=== PATIENT | female | born 1990 | race Caucasian/White ===

== ENCOUNTER 2021-09-29 10:35 | Outpatient (CLI) | payer BC, MEDICAID, SELFPAY ==
[2021-09-29 11:19] LABS: Hematocrit 34.8 % (37.0-47.0); Hemoglobin 11.4 g/dL (11.5-15.3); Mean Corpuscular HGB Conc 32.8 g/dL (30.0-36.0); Mean Corpuscular Hemoglobin 32.9 pg (28.0-34.0); Mean Corpuscular Volume 100.6 fl (81-99); Mean Platelet Volume 9.9 fL (7.4-10.4); Platelet Count 279 10^3/cmm (130-400); Red Blood Count 3.46 10^6/uL (4.1-5.3); Red Cell Distribution Width 13.5 % (12.1-15.1); White Blood Count 9.4 10^3/uL (4.0-10.0)
[2021-09-29 12:07] LABS: Estmated Average Glucose 88; Hemoglobin A1C 4.7 % (4.0-6.0)
[2021-09-29 12:30] LABS: Rapid Plasma Reagin Syphilis Nonreactive (Nonreactive)
[2021-09-29 12:40] LABS: Rubella IgG > 500.0 IU/mL (0.0-10.0)
[2021-09-29 20:50] LABS: HIV 1 & 2 Antibody Non-Reactive (Non-Reactiv); HIV 1 & 2 Antigen Non-Reactive (Non-Reactiv); Hepatitis B Surface Antigen Non-Reactive (Nonreactive); Hepatitis C Virus Antibody Reactive (Nonreactive)
[2021-10-03 23:47] LABS: HEP C RNA Viral Load Quant 123000 IU/mL (NOT DETECTED); HEP C RNA Viral Load Quant 5.09 Log IU/mL (NOT DETECTED)
== END 2021-09-29 10:36 | disposition home or self-care (01) ==
LOC: LAB 10:38
PROVIDERS: Visit Provider Obstetrics & Gynecology
DX: O09.92 Supervision of high risk pregnancy, unspecified, second trimester (principal); Z83.3 Family history of diabetes mellitus
CPT/HCPCS: 80307; 81000; 81025; 83036; 85027; 86592; 86762; 86803; 86850; 86900; 87086; 87340; 87491; 87522; 87591; 87624; 87806

== ENCOUNTER → 2021-11-08 09:03 | Outpatient (BNVA) | payer BC, MEDICAID, SELFPAY | PROVIDERS: Visit Provider Obstetrics & Gynecology | DX: Z34.92 Encounter for supervision of normal pregnancy, unspecified, second trimester (principal); Z3A.26 26 weeks gestation of pregnancy | CPT/HCPCS: 76805 ==

== ENCOUNTER → 2021-11-10 14:10 | Outpatient (BNVA) | payer BC, MEDICAID, SELFPAY | PROVIDERS: Visit Provider Obstetrics & Gynecology | DX: O98.419 Viral hepatitis complicating pregnancy, unspecified trimester (principal); B18.2 Chronic viral hepatitis C | CPT/HCPCS: 81000 ==

== ENCOUNTER → 2021-11-24 10:00 | Outpatient (BNVA) | payer BC, MEDICAID, SELFPAY | PROVIDERS: Visit Provider Obstetrics & Gynecology | DX: O26.899 Other specified pregnancy related conditions, unspecified trimester (principal); Z67.91 Unspecified blood type, Rh negative; B18.2 Chronic viral hepatitis C; Z72.0 Tobacco use; Z87.898 Personal history of other specified conditions | CPT/HCPCS: 81000; 82950; 85027; 86850 ==

== ENCOUNTER → 2021-12-11 11:02 | Outpatient (BNVA) | payer BC, MEDICAID, SELFPAY | PROVIDERS: Visit Provider Obstetrics & Gynecology | DX: O09.90 Supervision of high risk pregnancy, unspecified, unspecified trimester (principal) | CPT/HCPCS: 81000 ==

== ENCOUNTER → 2022-01-03 14:07 | Outpatient (BNVA) | payer BC, MEDICAID, SELFPAY | PROVIDERS: Visit Provider Obstetrics & Gynecology | DX: O09.92 Supervision of high risk pregnancy, unspecified, second trimester (principal); B18.2 Chronic viral hepatitis C; Z72.0 Tobacco use; Z87.898 Personal history of other specified conditions | CPT/HCPCS: 81000 ==

== ENCOUNTER → 2022-01-16 11:36 | Outpatient (BNVA) | payer BC, MEDICAID, SELFPAY | PROVIDERS: Visit Provider Obstetrics & Gynecology | DX: O09.93 Supervision of high risk pregnancy, unspecified, third trimester; Z3A.00 Weeks of gestation of pregnancy not specified | CPT/HCPCS: 80307; 81000; 87081 ==

== ENCOUNTER → 2022-01-23 10:21 | Outpatient (BNVA) | payer BC, MEDICAID, SELFPAY | PROVIDERS: Visit Provider Obstetrics & Gynecology | DX: O09.92 Supervision of high risk pregnancy, unspecified, second trimester; B18.2 Chronic viral hepatitis C; Z72.0 Tobacco use; Z87.898 Personal history of other specified conditions | CPT/HCPCS: 81000 ==

== ENCOUNTER 2022-01-30 17:30 | Inpatient (IN) | payer BC, MEDICAID, SELFPAY ==
[2022-01-30] VITALS (49 sets, daily range): BP systolic 93–186; BP diastolic 50–114; PULSE 64–103; RESP 16–18; TEMP 36.8–36.9; O2SAT 86–99; BMI 25.7
[2022-01-30 15:27] LABS: Nitrazine Paper, PH Negative
[2022-01-30 15:36] LABS: Add Urine Microscopic? NO
[2022-01-30] MEDS: lactated ringers 1,000 ML 999 ML IV ×4 (15:36→23:15)
[2022-01-30 16:49] LABS: Actim Prom Positive
--- NOTE | 2022-01-30 17:30 | PC.NURSE ---
bedside ultrasound performed and vertex presentation verified by health technical writer and Med Malodnado RN
[2022-01-30 17:38] LABS: Blood Urine Neg (Negative); Glucose Urine UA Norm (Normal); Ketones Urine Negative (Negative); Protein Urine Neg (Negative); Specific Gravity, Urine 1.005 (1.005-1.030); Urine Appearance Clear (CLEAR); Urine Color Yellow (Yellow); pH Urine 6.5 (5-7)
[2022-01-30 17:39] LABS: Add Urine Culture? No; Bacteria Urine TRACE /hpf; Bilirubin Urine Neg (Negative); Leukocyte Esterase Urine Negative (Negative); Nitrate Urine Negative (Negative); RBC Urine 0-4 /hpf (0-2); Squamous Epithelial Cell Urine 0-4 /hpf (0-5); Urobilinogen Urine Norm (Negative); WBC Urine 0-4 /hpf (0-5)
[2022-01-30] MEDS: miSOPROStol 100 mcg tablet 25 MCG VAGINAL (17:41)
[2022-01-30] MEDS: dextrose 5%-lactated ringers 1,000 ML 125 ML IV (18:52)
[2022-01-30] MEDS: ampicillin 2,000 MG in sodium chloride 0.9% (plus) 50 ML 100 MG IV (18:54)
[2022-01-30 18:59] LABS: Basophils % 0.3 %; Eosinophils # 0.1 10^3/uL (0.0-0.8); Eosinophils % 0.5 %; Hematocrit 37.4 % (37.0-47.0); Hemoglobin 12.7 g/dL (11.5-15.3); Lymphocytes # 1.7 10^3/uL (0.8-4.8); Lymphocytes % 14.7 %; Mean Corpuscular Hemoglobin 33.2 pg (28.0-34.0); Mean Corpuscular Volume 97.7 fl (81-99); Monocytes # 0.8 10^3/uL (0.2-0.9); Neutrophils # 8.75 10^3/uL (1.8-7.7); Neutrophils % 77.1 %; Nucleated Red Blood Cells % 0 %; Platelet Count 209 10^3/cmm (130-400); Red Blood Count 3.83 10^6/uL (4.1-5.3); Red Cell Distribution Width 12.7 % (12.1-15.1); White Blood Count 11.4 10^3/uL (4.0-10.0)
[2022-01-30 19:15] LABS: Amphetamines Screen Urine Negative (Negative); Barbiturates Screen Urine Negative (Negative); Benzodiazepines Screen Urine Negative (Negative); Cocaine Screen Urine Negative (Negative); Opiate Screen Urine Negative (Negative); PCP Screen Urine Negative (Negative); THC Screen Urine Negative (Negative)
--- NOTE | 2022-01-30 19:32 | PM.OPHPUD ---
Labor & Delivery H&P Update Date of Procedure: January 30, 2022 Date H&P Performed: 01/23/22 H&P update information: I have reviewed H&P completed within last 30 days, I have examined patient prior to procedure and Changes to prior documentation as noted here Changes to previous documentation: The patient presented to labor and delivery with complaints of SROM about 48 hours ago. She also reports contractions every 5-7 minutes. She was found to be positive with actin-prom. Admission Diagnosis: . iup @ 38 weeks
[2022-01-30] MEDS: ampicillin 1,000 MG in sodium chloride 0.9% (plus) 50 ML 100 MG IV (22:43)
--- NOTE | 2022-01-30 22:55 | P.ANESASSM_ITS ---
Pre-Anesthetic Assessment Height/Weight: Height 1.63 m Weight 68.039 kg Temp Pulse Resp BP Pulse Ox 98.4 F 80 18 119/66 96 01/30/22 17:09 01/30/22 23:11 01/30/22 18:13 01/30/22 23:11 01/30/22 23:07 Preop Diagnosis: IUP epidural Familial anesthetic complications: none Was Beta Charanjit taken within 24 hours: N/A Was Clonidine taken within 24 hours: N/A Last Intake: 17:30 Social Tobacco (2 cigs/day) and No alcohol Exam alert and oriented x 3 Airway Submandibular: within normal limits Cervical ROM: within normal limits Mallampati: Class II Dentition: full History/ROS No significant complaints Anesthetic Plan ASA status: 2 Anesthesia: Anesthesia Evaluation and Regional (specify below) Medications/Allergies Home Medications Medication Instructions Recorded Confirmed Last Taken Type prenat.vits,bart,gnd-nolm-nnmol 1 tab PO DAILY 09/29/21 01/23/22 Unknown History Allergies Allergy/AdvReac Type Severity Reaction Status Date / Time No Known Allergies Allergy Verified 01/23/22 10:12 Current Medications Generic Name Dose Route Start Last Admin Trade Name Freq PRN Reason Stop Dose Admin Lactated Ringer's 1,000 mls @ 999 mls/hr 01/30/22 15:11 01/30/22 16:39 Lactated Ringers IV 999 mls/hr .Q1H1M PRN Administration DISCOMFORT Dextrose/Lactated Ringer's 1,000 mls @ 125 mls/hr 01/30/22 17:15 01/30/22 19:55 Dextrose 5%-Lactated Ringers IV 0 mls/hr .Q8H LUIS FERNANDO Infusion Ampicillin Sodium 1,000 mg/ 50 mls @ 100 mls/hr 01/30/22 21:15 01/30/22 22:43 Sodium Chloride IV 100 mls/hr Q4H LUIS FERNANDO Administration Protocol Lactated Ringer's 1,000 mls @ 999 mls/hr 01/30/22 22:00 01/30/22 21:56 Lactated Ringers IV 999 mls/hr .Q1H1M PRN Administration See label comments Misoprostol 25 mcg 01/30/22 17:15 01/30/22 17:41 Misoprostol 100 Mcg Tablet VAGINAL 01/31/22 01:16 25 mcg Q4H LUIS FERNANDO Administration PFSH Anesthesia Medical History Hepatitis C History of heroin abuse History of methamphetamine abuse Family History Family/Other Diabetes maternal uncles x2 Hyperlipidemia maternal uncles x2 Hypertension maternal uncles x2 maternal aunt x1 Stroke maternal uncle Heart disease maternal uncle Grandmother Diabetes maternal Denies family history of Colon cancer Ovarian cancer Clotting disorder Breast cancer Anesthesia complication Bleeding disorder Uterine cancer Thyroid condition Female Reproductive History Date of last menstrual period: 06/07/21 : 1 Data Anesthesia : 01/30/22 18:30 Short CBC 01/30/22 Range/Units 18:30 WBC 11.4 H (4.0-10.0) 10^3/uL Hgb 12.7 (11.5-15.3) g/dL Hct 37.4 (37.0-47.0) % MCV 97.7 (81-99) fl Plt Count 209 (130-400) 10^3/cmm Neut % (Auto) 77.1 % Neut # (Auto) 8.75 H (1.8-7.7) 10^3/uL Urine 01/30/22 Range/Units 14:10 Urine Color Yellow (Yellow) Urine Appearance Clear (CLEAR) Urine pH 6.5 (5-7) Ur Specific [place] 1.005 (1.005-1.030) Urine Protein Neg (Negative) Urine Glucose (UA) Norm (Normal) Urine Ketones Negative (Negative) Urine Nitrate Negative (Negative) Urine Bilirubin Neg (Negative) Ur Leukocyte Esterase Negative (Negative) Urine RBC 0-4 H (0-2) /hpf Urine WBC 0-4 H (0-5) /hpf Cardiac Studies: No Data to Display
--- NOTE | 2022-01-30 23:13 | P.ANES_ITS ---
Anesthesia Procedures Procedure/Date: 01/30/22 Epidural: Time Out Performed: Yes Consents Signed: Procedure Consent Consent: from patient, risks and benefits reviewed and patient agrees to proceed Lumbar Level: L3-L4 Epidural position: sitting Epidural procedure: sterile prep of area, 1% lidocaine to numb the area, 18 g needle, negative for p aresthesia passed, test dose given, 1.5% xylocaine 1:200k epi, placed PCEA, no systemic response, sterile dressing applied, L.U.D. no apparent complications and 0.2% Ropiavacaine @ mls/hr (13) Additional Comments: SANDEE at 5, taped at 14 at skin. neg CSF, Neg blood return
[2022-01-31] VITALS (49 sets, daily range): BP systolic 82–153; BP diastolic 47–72; PULSE 56–82; RESP 16; TEMP 36.3–37.2; O2SAT 92–98
[2022-01-31] MEDS: ampicillin 1,000 MG in sodium chloride 0.9% (plus) 50 ML 100 MG IV (02:47)
[2022-01-31] MEDS: oxytocin 30 UNIT/500 ML BAG 600 UNIT IV (04:31)
--- NOTE | 2022-01-31 04:40 | PM.OPHPUD ---
Labor & Delivery H&P Update Date of Procedure: January 31, 2022 Date H&P Performed: 01/23/22 Admission Diagnosis: Preop diagnosis: IUP Related Problem List Diagnoses (1) Hepatitis C: (2) Tobacco use: (3) High-risk in third trimester:
--- NOTE | 2022-01-31 04:42 | P.PCNOB_ITS ---
Delivery Note: Date of delivery: January 31, 2022 Pre-delivery diagnoses: iup@37 weeks, Hepatitis C positive Post-delivery diagnoses: same-delivered Procedure: Delivering Physician: Arias Estimated blood loss (mL): 5 Findings: Term male in the JACKIE presentation. Pre-Delivery Course: The patient presented with complaints of contractions and LOF for 48 hours. Actin prom was positive. She was admitted and started on prophylactic antibiotics. She received one dose of cytotec and after a few hours, was having strong contractions and in active labor. She received an epidural for pain management. She had complete cervical dilation and began pushing. Delivery: The patient had complete cervical dilation and began to push. The head delivered in the JACKIE position over an intact perineum under intact anesthesia. The nose and mouth were bulb suctioned. The shoulders and body delivered atraumatically. The baby was placed onto the mother's abdomen. The cord was clamped and cut. Cord blood was obtained. The placenta delivered spontaneously. It was inspected and found to be intact. Inspection of the perineum revealed no repair was required. Estimated blood loss 5 mL. Apgars on baby were 8 at 1 minute and 9 at 5 minutes. Weight of baby is 7 pounds 3 ounces. Mother and baby were stable post delivery. History History History 1 Term 0 Miscarriages/Ectopic 0 0 Living Children 0 Coding Level of Care Code Acute Registered Massage Therapist for Chg Gladys
[2022-01-31] MEDS: lanolin oint 7 gm 1 APPLIC TOPICAL (08:46)
[2022-01-31] MEDS: prenatal vitamin Capsule 1 CAP PO (08:46)
[2022-01-31] MEDS: docusate sodium 100 mg Capsule PO ×2 (08:46→21:15)
[2022-01-31] MEDS: ibuprofen 800 mg tablet PO ×2 (08:46→21:15)
[2022-01-31] MEDS: benzocaine-menthol 78 gm Canister 1 SPRAY TOPICAL (08:47)
--- NOTE | 2022-01-31 14:50 | ANE.PACU2 ---
Inpatient post-anesthesia follow up: Airway intact: Yes Vital signs: Temperature 99.0 F Pulse Rate 68 Respiratory Rate 16 Blood Pressure 109/58 Pulse Oximetry 97 Oxygen Delivery Me thod Room Air Oxygen Flow Rate Fraction of Inspir ed Oxygen Hydration adequate: Yes Nausea and vomiting: No Pain level: 1 Mental status: Baseline
[2022-01-31 18:38] LABS: Hematocrit 35.6 % (37.0-47.0); Hemoglobin 12.5 g/dL (11.5-15.3); Mean Corpuscular HGB Conc 35.1 g/dL (30.0-36.0); Mean Corpuscular Hemoglobin 33.5 pg (28.0-34.0); Mean Corpuscular Volume 95.4 fl (81-99); Mean Platelet Volume 12.3 fL (7.4-10.4); Platelet Count 218 10^3/cmm (130-400); Red Blood Count 3.73 10^6/uL (4.1-5.3); Red Cell Distribution Width 12.9 % (12.1-15.1); White Blood Count 14.8 10^3/uL (4.0-10.0)
[2022-02-01] VITALS (8 sets, daily range): BP systolic 102–115; BP diastolic 59–69; PULSE 72–89; RESP 15–16; TEMP 36.7–36.8; O2SAT 92
--- NOTE | 2022-02-01 07:42 | PM.PN ---
Subjective Subjective: The patient has no concerns today Vitals/I&O/Wt Last Vital Signs Temp 97.5 F L 01/31/22 21:16 Pulse 82 02/01/22 04:35 Resp 16 02/01/22 04:40 BP 102/62 02/01/22 04:35 Pulse Ox 92 02/01/22 04:34 Weight last 48 hrs Weight 150 lb Physical Exam Narrative: The patient is doing well this morning. Const: COMMON NORMALS: no acute distress, average body habitus, patient oriented x3, no limitations, healthy appearing, alert and well nourished GENERAL APPEARANCE: cooperative, comfortable, well kempt and well developed ORIENTATION/CONSCIOUSNESS: Yes awake, Yes oriented to person, Yes oriented to place and Yes oriented to time Resp: COMMON NORMALS: normal respiratory effort EFFORT & INSPECTION: Yes able to speak in complete sentences GI: COMMON NORMALS: Soft to palpation and non-tender PALPATION: Yes Soft to palpation Extremity: COMMON NORMALS: no calf tenderness Neuro: COMMON NORMALS: patient oriented x3 SENSORIUM/ORIENTATION: Yes alert, Yes oriented to person, Yes oriented to place and Yes oriented to time Psych: APPEARANCE: Yes well kempt Urinary Catheter Management: Brink: Cath Placed During This Visit: yes, but has since been removed by the nurse Reason for Continuing Indwelling Catheter: Decision to DC Catheter Urinary Catheter Date of Insertion: 01/31/22 Urinary Catheter Time of Insertion: 23:58 Date Urinary Catheter Removed: 01/31/22 Time Urinary Catheter Discontinued: 03:59 Data : 01/31/22 16:04 Attestations Medical Necessity Statement*: The patient had a vaginal delivery. She desires to stay two nights. Coding Level of Care Code Acute Dimpling Machine Operator for Jeffrey Graham
[2022-02-01] MEDS: docusate sodium 100 mg Capsule PO (09:39)
[2022-02-01] MEDS: prenatal vitamin Capsule 1 CAP PO (09:39)
[2022-02-01] MEDS: ibuprofen 800 mg tablet PO ×3 (09:39→21:10)
[2022-02-02 04:40] VITALS: BP 117/68; PULSE 75; RESP 18; TEMP 36.8
--- NOTE | 2022-02-02 08:08 | PM.DCS ---
Discharge Providers Date of Admission: 01/30/22 17:30 Date of Discharge: February 02, 2022 Attending Provider at Admission: Dulce Bianchi MD Attending Provider at Discharge: Dulce Bianchi MD Diagnoses at Discharge Discharge Diagnosis (1) Hepatitis C: Status: Acute Qualifiers: Hepatic coma status: without hepatic coma Viral hepatitis chronicity: chronic Qualified Code(s): B18.2 - Chronic viral hepatitis C (2) Tobacco use: Status: Acute (3) High-risk in third trimester: Status: Acute Reason for Visit Reason for Visit: Contractions, poss LOF Hospital Course Hospital Course The patient was admitted with premature SROM about 48 hours prior to admission. She was admitted and received a single dose of cytotec. She began laboring from the cytotec. She received an epidural for pain management. She had spontaneous delivery of a term . She did well and was ready for discharge on day #2 Physical Exam Narrative: doing well. No concerns today. Breast feeding. normal lochia Const: COMMON NORMALS: no acute distress, average body habitus, patient oriented x3, no limitations, healthy appearing, alert and well nourished GENERAL APPEARANCE: cooperative, comfortable, well kempt and well developed ORIENTATION/CONSCIOUSNESS: Yes awake, Yes oriented to person, Yes oriented to place and Yes oriented to time Resp: COMMON NORMALS: normal respiratory effort EFFORT & INSPECTION: Yes able to speak in complete sentences GI: COMMON NORMALS: Soft to palpation and non-tender PALPATION: Yes Soft to palpation Extremity: COMMON NORMALS: no calf tenderness Neuro: COMMON NORMALS: patient oriented x3 SENSORIUM/ORIENTATION: Yes alert, Yes oriented to person, Yes oriented to place and Yes oriented to time Psych: APPEARANCE: Yes well kempt Urinary Catheter Management: Brink: Cath Placed During This Visit: yes, but has since been removed by the nurse Reason for Continuing Indwelling Catheter: Decision to DC Catheter Urinary Catheter Date of Insertion: 01/31/22 Urinary Catheter Time of Insertion: 23:58 Date Urinary Catheter Removed: 01/31/22 Time Urinary Catheter Discontinued: 03:59 Discharge Data Studies Completed and Pending Laboratory Results WBC 14.8 10^3/uL (4.0-10.0) H 01/31/22 16:04 RBC 3.73 10^6/uL (4.1-5.3) L 01/31/22 16:04 Hgb 12.5 g/dL (11.5-15.3) 01/31/22 16:04 Hct 35.6 % (37.0-47.0) L 01/31/22 16:04 MCV 95.4 fl (81-99) 01/31/22 16:04 MCH 33.5 pg (28.0-34.0) 01/31/22 16:04 MCHC 35.1 g/dL (30.0-36.0) 01/31/22 16:04 RDW 12.9 % (12.1-15.1) 01/31/22 16:04 Plt Count 218 10^3/cmm (130-400) 01/31/22 16:04 MPV 12.3 fL (7.4-10.4) H 01/31/22 16:04 Neut % (Auto) 77.1 % 01/30/22 18:30 Lymph % (Auto) 14.7 % 01/30/22 18:30 [place] % (Auto) 7.0 % 01/30/22 18:30 Eos % (Auto) 0.5 % 01/30/22 18:30 Baso % (Auto) 0.3 % 01/30/22 18:30 Neut # (Auto) 8.75 10^3/uL (1.8-7.7) H 01/30/22 18:30 Lymph # (Auto) 1.7 10^3/uL (0.8-4.8) 01/30/22 18:30 [place] # (Auto) 0.8 10^3/uL (0.2-0.9) 01/30/22 18:30 Eos # (Auto) 0.1 10^3/uL (0.0-0.8) 01/30/22 18:30 Baso # (Auto) 0.0 10^3/uL (0.0-0.1) 01/30/22 18:30 Nucleated RBC % (auto) 0 % 01/30/22 18:30 Nucleated RBCs # 0.0 /100WBC 01/30/22 18:30 Insulin-like GF I Positive 01/30/22 15:40 Urine Color Yellow (Yellow) 01/30/22 14:10 Urine Appearance Clear (CLEAR) 01/30/22 14:10 Urine pH 6.5 (5-7) 01/30/22 14:10 Ur Specific [place] 1.005 (1.005-1.030) 01/30/22 14:10 Urine Protein Neg (Negative) 01/30/22 14:10 Urine Glucose (UA) Norm (Normal) 01/30/22 14:10 Urine Ketones Negative (Negative) 01/30/22 14:10 Urine Blood Neg (Negative) 01/30/22 14:10 Urine Nitrate Negative (Negative) 01/30/22 14:10 Urine Bilirubin Neg (Negative) 01/30/22 14:10 Urine Urobilinogen Norm mg/dL (Negative) 01/30/22 14:10 Ur Leukocyte Esterase Negative (Negative) 01/30/22 14:10 Urine RBC 0-4 /hpf (0-2) H 01/30/22 14:10 Urine WBC 0-4 /hpf (0-5) H 01/30/22 14:10 Ur Squamous Epith Cells 0-4 /hpf (0-5) H 01/30/22 14:10 Amorphous Sediment Not Reportable 01/30/22 14:10 Urine Bacteria Trace /hpf (NONE) 01/30/22 14:10 Urine Opiates Screen Negative ng/mL (Negative) 01/30/22 14:10 Ur Barbiturates Screen Negative ng/mL (Negative) 01/30/22 14:10 Ur Phencyclidine Scrn Negative ng/mL (Negative) 01/30/22 14:10 Ur Amphetamines Screen Negative ng/mL (Negative) 01/30/22 14:10 U Benzodiazepines Scrn Negative ng/mL (Negative) 01/30/22 14:10 Urine Cocaine Screen Negative ng/mL (Negative) 01/30/22 14:10 U Marijuana (THC) Screen Negative ng/mL (Negative) 01/30/22 14:10 Blood Type O Negative 01/30/22 18:30 Rho(D) Type Negative 01/30/22 18:30 Antibody Screen Positive 01/30/22 18:30 Antibody Identification Anti-D 01/30/22 18:30 Screen Negative (Negative) 01/31/22 16:30 Vitals Last Vital Signs Temp 98.3 F 02/02/22 04:40 Pulse 75 02/02/22 04:40 Resp 18 02/02/22 04:40 BP 117/68 02/02/22 04:40 Pulse Ox 92 02/01/22 04:34 Discharge Plan Discharge Patient Disposition: Home Condition: Stable Prescriptions: Continued prenat.vits,bart,ipb-ygdx-vqysg Tablet 1 tab PO DAILY 0RF Discharge Orders: Discharge Order (Routine); Ordered 02/02/22 Ordered By: Dulce Bianchi Referrals: Suman Caban MD [Physician] - 03/13/22 2:00 pm (6 week post-: 03/13/22 @2:00. ) Patient Instructions: Depression (DC), Bleeding (DC), Preeclampsia and Eclampsia After Delivery (GEN), OB Discharge Report, OB Food/Drug Interaction Guide, Opioid Safety, OB Home Care, OB Proud Parent Packet, OB Vaginal Deliveries - [facility] Discharge Attestations Time Spent in Discharge Care*: less than 30 min Quality Metrics Clinical Quality Measures [ No reported AMI, CVA or VTE this stay] Coding Level of Care Code Acute Chg FW DC note Diagnoses Hepatitis C B18.2 Hepatic coma status: without hepatic coma Viral hepatitis chronicity: chronic Tobacco use Z72.0 High-risk in third trimester O09.93
[2022-02-02] MEDS: docusate sodium 100 mg Capsule PO (09:13)
[2022-02-02] MEDS: prenatal vitamin Capsule 1 CAP PO (09:13)
[2022-02-02] MEDS: ibuprofen 800 mg tablet PO (09:13)
[2022-02-02 09:22] VITALS: BP 115/75; PULSE 85; RESP 17; TEMP 36.8
[2022-02-02 10:00] VITALS: BP 115/75; PULSE 85; RESP 17; TEMP 36.8
== END 2022-02-02 10:00 | disposition home or self-care (01) | DRG 806 ==
LOC: OPOB 17:31 → OBGYN 17:31
PROVIDERS: Admitting Provider Obstetrics & Gynecology; Visit Provider Obstetrics & Gynecology
DX: O42.12 Full-term premature rupture of membranes, onset of labor more than 24 hours following rupture (principal); O98.42 Viral hepatitis complicating childbirth; Z37.0 Single live birth; B18.2 Chronic viral hepatitis C; O99.334 Smoking (tobacco) complicating childbirth; F17.210 Nicotine dependence, cigarettes, uncomplicated; Z3A.37 37 weeks gestation of pregnancy; Z87.898 Personal history of other specified conditions
CPT/HCPCS: 36415; 36430; 51702; 59025; 59409; 80306; 80503; 81001; 83986; 84112; 85025; 85027; 85460; 86850; 86870; 86900; 90384; 99211; J0290; J2795

== ENCOUNTER → 2022-07-09 15:12 | Outpatient (BNVA) | payer BC, MEDICAID, SELFPAY | PROVIDERS: Visit Provider Family Medicine | DX: B18.2 Chronic viral hepatitis C (principal); Z87.898 Personal history of other specified conditions | CPT/HCPCS: 80053; 85025; 86803; 87522; 87902 ==

== ENCOUNTER 2022-07-10 01:00 | Outpatient (CLI) | payer BC, MEDICAID, SELFPAY | END 2022-07-10 23:00 | disposition home or self-care (01) | LOC: RAD 08-21 15:14 | PROVIDERS: PCP Family Medicine; Visit Provider Family Medicine | DX: B18.2 Chronic viral hepatitis C (principal) | CPT/HCPCS: 82977; 84443; 87806 ==

== ENCOUNTER → 2022-08-16 13:25 | Outpatient (BNVA) | payer BC, MEDICAID, SELFPAY | PROVIDERS: Visit Provider Family Medicine | DX: B18.2 Chronic viral hepatitis C (principal) | CPT/HCPCS: 85610; 87522 ==

== ENCOUNTER 2022-09-12 10:24 | Outpatient (CLI) | payer BC, MEDICAID, SELFPAY ==
--- NOTE | 2022-09-12 10:15 | US_ITS ---
WS: [id number] Complete ABDOMINAL ULTRASOUND HISTORY: B18.2 - Chronic viral hepatitis C COMPARISON: None available. Liver: 15.4 cm in length. Liver is normal size and echogenicity with no mass or intrahepatic dilatati on. Portal Vein: Normal hepatopetal flow with monophasic waveform. Gallbladder: Normally distended with no gallstones, wall thickening or pericholecystic fluid. Pancreas: Normal size and echogenicity. CBD: 0.2 cm. Right kidney: 9.1 cm x 5.1 cm x 3.9 cm. No mass, cortical thickening or hydronephrosis. Left kidney: 10.2 cm x 5.0 cm x 4.9 cm. No mass, cortical thickening or hydronephrosis. Spleen: Normal size and echogenicity. Abdominal aorta and IVC are within normal limits. No ascites. US/US abdomen complete* [id number] IMPRESSION: Normal complete abdomen ultrasound.
== END 2022-09-12 10:25 | disposition home or self-care (01) ==
PROVIDERS: PCP Family Medicine; Visit Provider Family Medicine
DX: B18.2 Chronic viral hepatitis C (principal)
CPT/HCPCS: 76700

== ENCOUNTER → 2022-10-30 11:06 | Outpatient (BNVA) | payer BC, MEDICAID, SELFPAY | PROVIDERS: PCP Family Medicine; Visit Provider Family Medicine | DX: B19.20 Unspecified viral hepatitis C without hepatic coma (principal) | CPT/HCPCS: 80053; 85025; 87522 ==

== ENCOUNTER → 2023-08-06 14:00 | Outpatient (BNVA) | payer BC, MEDICAID, SELFPAY | PROVIDERS: PCP Family Medicine; Referring Provider Nurse Practitioner Family; Visit Provider Obstetrics & Gynecology | DX: Z34.90 Encounter for supervision of normal pregnancy, unspecified, unspecified trimester (principal) | CPT/HCPCS: 81000; 87081 ==

== ENCOUNTER → 2023-08-14 15:17 | Outpatient (BNVA) | payer BC, MEDICAID, SELFPAY | PROVIDERS: PCP Family Medicine; Visit Provider Obstetrics & Gynecology | DX: Z34.90 Encounter for supervision of normal pregnancy, unspecified, unspecified trimester (principal) | CPT/HCPCS: 81000 ==

== ENCOUNTER 2023-08-18 20:45 | Outpatient (CLI) | payer BC, MEDICAID, SELFPAY ==
[2023-08-18 21:00] VITALS: BMI 27.1
--- NOTE | 2023-08-18 22:41 | USR_ITS ---
PROCEDURE INFORMATION: Exam: US , Limited Exam date and time: 08/18/2023 11:34 PM Age: 33 years old Clinical indication: Lmp or gestational age (in weeks): 39 w; Other: Patient thought she was leaking fluid. Strip test negative. ; Additional info: Measure alisson LABS AND CLINICAL REPORTS: Last menstrual period start date: 11/17/2022 Gestational age (Established): 39 w 1 d Estimated due date (Established): 08/24/2023 TECHNIQUE: Imaging protocol: Real-time ultrasound of the maternal uterus with image documentation. Exam focused on the clinical indication. COMPARISON: US OB >= 14 weeks fetus [id number] 11/08/2021 9:04 AM FINDINGS: Gestation: Single live intrauterine fetus. measurements not obtained. heart rate: 144 bpm presentation: Vertex presentation. Placenta: Unremarkable visualized grade III posterior fundal placenta. Amniotic fluid index: ALISSON is 10.08 cm. MATERNAL: Cervix: Cervical length measures 3.9 cm. US/US OB limited [id number] IMPRESSION: 1. Single live intrauterine fetus in vertex presentation with reported LMP gestational age 39 weeks 1 day and estimated due date 08/24/2023. 2. ALISSON 10.08 cm. 3. Closed cervix measuring 3.9 cm in length.
[2023-08-18 23:26] LABS: Actim Prom Negative
[2023-08-19 00:27] VITALS: BP 111/62; PULSE 81
[2023-08-19 06:18] LABS: Nitrazine Paper, PH Negative
== END 2023-08-19 00:30 | disposition home or self-care (01) ==
LOC: OPOB 21:02 → OBGYN 21:03
PROVIDERS: PCP Family Medicine; Visit Provider Obstetrics & Gynecology
DX: O26.893 Other specified pregnancy related conditions, third trimester (principal); Z3A.39 39 weeks gestation of pregnancy; N89.8 Other specified noninflammatory disorders of vagina
CPT/HCPCS: 59025; 76815; 83986; 84112; 99211

== ENCOUNTER → 2023-08-21 15:37 | Outpatient (BNVA) | payer BC, MEDICAID, SELFPAY | PROVIDERS: PCP Family Medicine; Visit Provider Obstetrics & Gynecology | DX: Z34.80 Encounter for supervision of other normal pregnancy, unspecified trimester (principal) | CPT/HCPCS: 81000 ==

== ENCOUNTER 2023-08-22 07:06 | Inpatient (IN) | payer BC, MEDICAID, SELFPAY ==
[2023-08-22] VITALS (51 sets, daily range): BP systolic 87–123; BP diastolic 52–78; PULSE 62–92; RESP 16–17; TEMP 35.9–36.6; BMI 26.2
[2023-08-22 08:21] LABS: Basophils % 0.2 %; Eosinophils # 0.1 10^3/uL (0.0-0.8); Eosinophils % 0.6 %; Hematocrit 33.2 % (36-47); Lymphocytes # 1.9 10^3/uL (0.8-4.8); Lymphocytes % 23.1 %; Mean Corpuscular HGB Conc 33.4 g/dL (30-55); Mean Corpuscular Hemoglobin 31.7 pg (27-33); Mean Corpuscular Volume 94.9 fl (85-98); Mean Platelet Volume 11.7 fL (7.4-10.4); Monocytes # 0.6 10^3/uL (0.2-0.9); Monocytes % 7.9 %; Neutrophils # 5.46 10^3/uL (1.8-7.7); Neutrophils % 67.7 %; Nucleated Red Blood Cells % 0 %; Platelet Count 216 10^3/cmm (157-399); Red Cell Distribution Width 13.8 % (12.1-15.1); White Blood Count 8.08 10^3/uL (3.29-11.43)
[2023-08-22] MEDS: oxytocin 30 UNIT/500 ML BAG IV (08:30)
[2023-08-22] MEDS: dextrose 5%-lactated ringers 1,000 ML 125 ML IV ×3 (08:32→23:15)
[2023-08-22 08:44] LABS: Amphetamines Screen Urine Negative (Negative); Barbiturates Screen Urine Negative (Negative); Benzodiazepines Screen Urine Negative (Negative); Cocaine Screen Urine Negative (Negative); Opiate Screen Urine Negative (Negative); PCP Screen Urine Negative (Negative); THC Screen Urine Negative (Negative)
--- NOTE | 2023-08-22 09:25 | P.HP_ITS ---
Providers/Chief Complaint 2 Admitting Physician: Walt Turner MD Primary MARKETING PROGRAMS SPECIALIST: Walt Turner MD Primary Care Provider: Elle Coleman MD Chief Complaint: Induction of labor HPI MARKETING PROGRAMS SPECIALIST History of Present Illness 33 y.o. EDC August 24, 2023 by 10-week sono At 39 w 5 d no complications now admitted for elective induction of labor No c/o + active movements h/o x one POBHx: 01-31-22, , male, 37 weeks, uncomplicated Present Details : 2 Para: 1 Labs Rubella: Immune RPR: Negative GBS: Negative Medications/Allergies Home Medications Medication Instructions Recorded Confirmed Last Taken Type prenat.vits,bart,rwq-shux-iyvap 1 tab PO DAILY 09/29/21 08/22/23 08/21/23 History Allergies Allergy/AdvReac Type Severity Reaction Status Date / Time No Known Allergies Allergy Verified 08/21/23 15:16 PFSH MARKETING PROGRAMS SPECIALIST 2 PFSH: Medical History History of methamphetamine abuse History of heroin abuse Hepatitis C Surgical History No history of previous surgery History of wisdom tooth extraction Family History Family/Other Diabetes maternal uncles x2 Hyperlipidemia maternal uncles x2 Hypertension maternal uncles x2 maternal aunt x1 Stroke maternal uncle Heart disease maternal uncle Grandmother Diabetes maternal Denies family history of Colon cancer Ovarian cancer Clotting disorder Breast cancer Anesthesia complication Bleeding disorder Uterine cancer Thyroid disease Social History Substance/Drug Use: former Date of last use: clean 6 years from meth and heroin Personal Safety: Do you feel safe at home: Yes History History History 2 2 Term 1 0 Miscarriages/Ectopic 0 Living Children 1 Care YARIEL Calculator 2 Estimated Delivery Date Method Current WG Current Estimate 08/24/23 Ultrasound #1 39w 6d Other Estimates 08/24/23 LMP (Uncertain) 39w 6d Vitals/I&O/Wt Last Vital Signs Temp 97.3 F L 08/23/23 03:17 Pulse 68 02/02/24 04:00 Resp 16 08/22/23 10:00 BP 109/66 08/23/23 04:00 O2 Del Method Room Air 08/22/23 08:00 08/22/23 08/22/23 08/23/23 14:59 22:59 06:59 Intake Total 21.417 / 21.417 1042.75 / 1064.167 823.334 / 1887.501 Balance 21.417 / 21.417 1042.75 / 1064.167 823.334 / 1887.501 Weight last 48 hrs Weight 153 lb Physical Exam 2 Narrative: Weight 179 lbs; 5?4? VS normal Comfortable, awake, alert Lungs: clear Cor: RRR Abd: nontender FH 37 cm, cephalic FHTs normal Cervix: 1 cm / 75% / -2 / posterior Ext: no edema External monitor: heart tracing good variability, + accelerations Data 08/22/23 07:50 Results Labs OB ([facility]): 2 Obstetrics 08/18/23 Blood Type O Negative 08/22/23 Antibody Screen Positive 08/22/23 Hct 33.2 % (36-47) L 08/22/23 Hgb 11.10 g/dL (11.27-16.99) L 08/22/23 Rho(D) Type Negative 08/22/23 Plt Count 216 10^3/cmm (157-399) 08/22/23 Hep Bs Antigen Non-reactive (Nonreactive) 09/29/21 Hepatitis C Antibody Reactive (Nonreactive) H 07/09/22 Rubella IgG Antibody > 500.0 IU/mL (0.0-10.0) H 09/29/21 RPR Nonreactive (Nonreactive) 09/29/21 HIV 1&2 Ab & HIV 1 Ag Non-reactive (Non-Reactiv) 07/10/22 TSH 0.78 uIU/mL (0.27-4.20) 07/10/22 Gest Glucose Tolerance 125 mg/dL 11/24/21 Hemoglobin A1c 4.7 % (4.0-6.0) 09/29/21 HCG, Qual Positive (Negative) H 09/29/21 Urine Opiates Screen Negative ng/mL (Negative) 08/22/23 Ur Barbiturates Screen Negative ng/mL (Negative) 08/22/23 Ur Phencyclidine Scrn Negative ng/mL (Negative) 08/22/23 Ur Amphetamines Screen Negative ng/mL (Negative) 08/22/23 U Benzodiazepines Scrn Negative ng/mL (Negative) 08/22/23 Urine Cocaine Screen Negative ng/mL (Negative) 08/22/23 U Marijuana (THC) Screen Negative ng/mL (Negative) 08/22/23 Micro Urine Specimen 09/29/21 Pap Smear Interpret See note 09/29/21 A&P Assessment and plan (1) Supervision of other normal : 39 w 5 d (2) Encounter for induction of labor: Patient requests induction of labor Admitted for labor induction Plan start Pitocin per protocol Attestations 2 Medical Necessity Statement*: patient at 39 w 5 d; admitted for induction of labor Coding Level of Care Code Acute Code for Chg Fwd Diagnoses Supervision of other normal Z34.80 Encounter for induction of labor Z34.90 Time Spent (min) 30
--- NOTE | 2023-08-22 22:45 | P.PN_ITS ---
ENVIRONMENTAL SCIENCE TECHNICIAN Subjective 2 Subjective: Interval history: Fetus reassuring Having mild UCs Cx: 2 cm / 75% / -2 / posterior AROM, clear fluid Labor: Station: -2 Amniotic Membrane Status: Ruptured Monitor Mode: External Contraction Pattern: Irregular Status: Category II Vitals/I&O/Wt Last Vital Signs Temp 97.3 F L 08/23/23 03:17 Pulse 68 08/23/23 04:00 Resp 16 08/22/23 10:00 BP 109/66 08/23/23 04:00 O2 Del Method Room Air 08/22/23 08:00 08/22/23 08/22/23 08/23/23 14:59 22:59 06:59 Intake Total 21.417 / 21.417 1042.75 / 1064.167 823.334 / 1887.501 Balance 21.417 / 21.417 1042.75 / 1064.167 823.334 / 1887.501 Weight last 48 hrs Weight 153 lb Data 08/22/23 07:50 A&P Assessment and plan (1) Supervision of other normal : (2) Encounter for induction of labor: (3) Rh negative status during : Attestations 2 Medical Necessity Statement*: patient at 39 w 5 d; admitted for induction of labor Coding Level of Care Code Acute Code for Chg Fwd Diagnoses Supervision of other normal Z34.80 Encounter for induction of labor Z34.90 Rh negative status during O26.899; Z67.91 Time Spent (min) 30
[2023-08-23] VITALS (22 sets, daily range): BP systolic 105–132; BP diastolic 54–83; PULSE 61–95; RESP 16–18; TEMP 36.1–36.9; O2SAT 96–100
[2023-08-23] MEDS: lactated ringers 1,000 ML 999 ML IV (01:28)
--- NOTE | 2023-08-23 02:35 | P.PN_ITS ---
SALES ATTENDANT BUILDING MATERIALS Subjective 2 Subjective: Interval history: DELIVERY NOTE , vigorous female infant Cord gases and blood obtained Normal placenta and cord Second-degree perineal laceration repaired EBL: 300 cc No complications Labor: Station: -2 Amniotic Membrane Status: Ruptured Monitor Mode: External Contraction Pattern: Irregular Status: Category II Vitals/I&O/Wt Last Vital Signs Temp 97.3 F L 08/23/23 03:17 Pulse 68 08/23/23 04:00 Resp 16 08/22/23 10:00 BP 109/66 08/23/23 04:00 O2 Del Method Room Air 08/22/23 08:00 08/22/23 08/22/23 08/23/23 14:59 22:59 06:59 Intake Total 21.417 / 21.417 1042.75 / 1064.167 823.334 / 1887.501 Balance 21.417 / 21.417 1042.75 / 1064.167 823.334 / 1887.501 Weight last 48 hrs Weight 153 lb Data 08/22/23 07:50 A&P Assessment and plan (1) Vaginal delivery: (2) Second degree perineal laceration: Attestations 2 Medical Necessity Statement*: patient s/p vaginal delivery Coding Level of Care Code Acute Code for Chg Fwd Diagnoses Vaginal delivery O80 Second degree perineal laceration O70.1 Time Spent (min) 60
[2023-08-23] MEDS: lidocaine 2% INJ 20 mL INJECTION (02:38)
[2023-08-23] MEDS: oxytocin 30 UNIT/500 ML BAG 600 UNIT IV (02:39)
--- NOTE | 2023-08-23 02:40 | PM.DELIVERY ---
Delivery Note: Date of delivery: August 23, 2023 Pre-delivery diagnoses: 39 w 5 d induction of labor Post-delivery diagnoses: 39 w 5 d induction of labor vaginal delivery repair of second-degree perineal laceration Procedure: induction of labor vaginal delivery repair of second-degree perineal laceration Op report anesthesia: None Delivering Physician: Walt Turner MD Estimated blood loss (mL): 300 Findings: , vigorous female Cord gases and blood obtained Normal placenta and cord Second-degree perineal laceration repaired EBL: 300 cc No complications Pre-Delivery Course: normal labor course Delivery: vaginal Post-Delivery Status: good History History History 2 Term 1 0 Miscarriages/Ectopic 0 Living Children 1 A&P Assessment and plan (1) Vaginal delivery: (2) Second degree perineal laceration: Coding Level of Care Code Acute Code for Chg Fwd Diagnoses Vaginal delivery O80 Second degree perineal laceration O70.1 Time Spent (min) 60
[2023-08-23] MEDS: acetaminophen 325 mg Tablet 650 MG PO (04:06)
[2023-08-23] MEDS: benzocaine-menthol 78 gm Canister 1 SPRAY TOPICAL (04:41)
[2023-08-23] MEDS: ibuprofen 800 mg tablet PO ×3 (11:21→20:21)
[2023-08-23] MEDS: docusate sodium 100 mg Capsule PO ×2 (11:22→17:38)
[2023-08-23] MEDS: prenatal vitamin Capsule 1 CAP PO (11:22)
[2023-08-23 21:11] LABS: Mean Corpuscular HGB Conc 32.7 g/dL (30-55); Mean Corpuscular Volume 94.9 fl (85-98); Mean Platelet Volume 11.7 fL (7.4-10.4); Platelet Count 196 10^3/cmm (157-399); Red Blood Count 3.16 10^6/uL (3.85-5.65); Red Cell Distribution Width 13.8 % (12.1-15.1); White Blood Count 8.69 10^3/uL (3.29-11.43)
[2023-08-24 04:16] VITALS: BP 113/58; PULSE 59; RESP 16; TEMP 36.8
[2023-08-24] MEDS: ibuprofen 800 mg tablet PO (09:26)
[2023-08-24] MEDS: ferrous sulfate EC 325 mg Tablet PO (09:26)
[2023-08-24] MEDS: prenatal vitamin Capsule 1 CAP PO (09:26)
[2023-08-24] MEDS: docusate sodium 100 mg Capsule PO (09:26)
[2023-08-24 09:29] VITALS: BP 108/55; PULSE 80; O2SAT 98
--- NOTE | 2023-08-24 10:45 | PM.OBGYDC ---
Discharge Providers TRACK LAYING EQUIPMENT OPERATOR Date of Admission: 08/22/23 07:06 Date of Discharge: 08/24/23 Attending Provider at Admission: Walt Turner MD Attending Provider at Discharge: Walt Turner MD Consults: none Primary TRACK LAYING EQUIPMENT OPERATOR: Walt Turner MD Primary Care Provider: Elle Coleman MD Diagnoses at Discharge Discharge Diagnosis (1) Vaginal delivery: Details from hospital stay: patient was admitted at 39 w 5 d for induction of labor had normal labor progress had vaginal delivery with repair of second-degree perineal laceration did well without any complications patient was discharged to home on first day Status: Inactive (2) Second degree perineal laceration: Status: Inactive Reason for Visit Reason for Visit: Induction of labor Hospital Course Hospital Course patient was admitted at 39 w 5 d for induction of labor had normal labor progress had vaginal delivery with repair of second-degree perineal laceration did well without any complications patient was discharged to home on first day Information Peripartum Data: Infant Delivery Method: Vaginal Laceration description: Perineal - 2nd Degree Episiotomy description: None complications: none Physical Exam Narrative: afebrile, VS normal comfortable, awake, alert Abd: soft, nontender. fundus firm Ext: no edema; nontender History History History 2 Term 1 0 Miscarriages/Ectopic 0 Living Children 1 Discharge Data Studies Completed and Pending Laboratory Results WBC 8.69 10^3/uL (3.29-11.43) 08/23/23 20:36 RBC 3.16 10^6/uL (3.85-5.65) L 08/23/23 20:36 Hgb 9.80 g/dL (11.27-16.99) L 08/23/23 20:36 Hct 30.0 % (36-47) L 08/23/23 20:36 MCV 94.9 fl (85-98) 08/23/23 20:36 MCH 31.0 pg (27-33) 08/23/23 20:36 MCHC 32.7 g/dL (30-55) 08/23/23 20:36 RDW 13.8 % (12.1-15.1) 08/23/23 20:36 Plt Count 196 10^3/cmm (157-399) 08/23/23 20:36 MPV 11.7 fL (7.4-10.4) H 08/23/23 20:36 Neut % (Auto) 67.7 % 08/22/23 07:50 Lymph % (Auto) 23.1 % 08/22/23 07:50 [place] % (Auto) 7.9 % 08/22/23 07:50 Eos % (Auto) 0.6 % 08/22/23 07:50 Baso % (Auto) 0.2 % 08/22/23 07:50 Neut # (Auto) 5.46 10^3/uL (1.8-7.7) 08/22/23 07:50 Lymph # (Auto) 1.9 10^3/uL (0.8-4.8) 08/22/23 07:50 [place] # (Auto) 0.6 10^3/uL (0.2-0.9) 08/22/23 07:50 Eos # (Auto) 0.1 10^3/uL (0.0-0.8) 08/22/23 07:50 Baso # (Auto) 0.0 10^3/uL (0.0-0.1) 08/22/23 07:50 Nucleated RBC % (auto) 0 % 08/22/23 07:50 Nucleated RBCs # 0.0 /100WBC 08/22/23 07:50 Urine Opiates Screen Negative ng/mL (Negative) 08/22/23 07:30 Ur Barbiturates Screen Negative ng/mL (Negative) 08/22/23 07:30 Ur Phencyclidine Scrn Negative ng/mL (Negative) 08/22/23 07:30 Ur Amphetamines Screen Negative ng/mL (Negative) 08/22/23 07:30 U Benzodiazepines Scrn Negative ng/mL (Negative) 08/22/23 07:30 Urine Cocaine Screen Negative ng/mL (Negative) 08/22/23 07:30 U Marijuana (THC) Screen Negative ng/mL (Negative) 08/22/23 07:30 Blood Type O Negative 08/22/23 07:50 Rho(D) Type Negative 08/22/23 07:50 Antibody Screen Positive 08/22/23 07:50 Antibody Identification Anti-D 08/22/23 07:50 Screen Negative (Negative) 08/23/23 20:36 Procedures Performed induction of labr vaginal delivery repair of second-degree perineal laceration Vitals Last Vital Signs Temp 98.6 F 08/24/23 12:47 Pulse 78 08/24/23 12:47 Resp 17 08/24/23 12:47 BP 118/62 08/24/23 12:47 Pulse Ox 98 08/24/23 12:47 O2 Del Method Room Air 08/24/23 12:03 Results Labs OB ([facility]): Obstetrics US 08/18/23 Blood Type O Negative 08/22/23 Antibody Screen Positive 08/22/23 Hct 30.0 % (36-47) L 08/23/23 Hgb 9.80 g/dL (11.27-16.99) L 08/23/23 Rho(D) Type Negative 08/22/23 Plt Count 196 10^3/cmm (157-399) 08/23/23 Hep Bs Antigen Non-reactive (Nonreactive) 09/29/21 Hepatitis C Antibody Reactive (Nonreactive) H 07/09/22 Rubella IgG Antibody > 500.0 IU/mL (0.0-10.0) H 09/29/21 RPR Nonreactive (Nonreactive) 09/29/21 HIV 1&2 Ab & HIV 1 Ag Non-reactive (Non-Reactiv) 07/10/22 TSH 0.78 uIU/mL (0.27-4.20) 07/10/22 Gest Glucose Tolerance 125 mg/dL 11/24/21 Hemoglobin A1c 4.7 % (4.0-6.0) 09/29/21 HCG, Qual Positive (Negative) H 09/29/21 Urine Opiates Screen Negative ng/mL (Negative) 08/22/23 Ur Barbiturates Screen Negative ng/mL (Negative) 08/22/23 Ur Phencyclidine Scrn Negative ng/mL (Negative) 08/22/23 Ur Amphetamines Screen Negative ng/mL (Negative) 08/22/23 U Benzodiazepines Scrn Negative ng/mL (Negative) 08/22/23 Urine Cocaine Screen Negative ng/mL (Negative) 08/22/23 U Marijuana (THC) Screen Negative ng/mL (Negative) 08/22/23 Micro Urine Specimen 09/29/21 Pap Smear Interpret See note 09/29/21 Discharge Plan Discharge Patient Disposition: Home Condition: Stable Prescriptions: Continued prenat.vits,bart,[id number] Tablet 1 tab PO DAILY Discharge Orders: Discharge Order (Routine); Ordered 08/24/23 Ordered By: Walt Turner Referrals: Walt Turner MD [Physician] - 6 Weeks (please call Saturday to set up a follow up appointment with Dr. Turner for 6 weeks.) Discharge Diet: Usual diet Discharge Activity: Resume usual activity Patient Instructions: Depression (DC), Bleeding (DC), Preeclampsia and Eclampsia After Delivery (GEN), OB Discharge Report, OB Food/Drug Interaction Guide, OB Care at Home, Opioid Safety, OB Vaginal Deliveries - [facility] Discharge Attestations TRACK LAYING EQUIPMENT OPERATOR Time Spent in Discharge Care*: less than 30 min Coding Level of Care Code Acute Code for Chg Fwd Diagnoses Vaginal delivery O80 Second degree perineal laceration O70.1 Time Spent (min) 20
[2023-08-24 12:03] VITALS: BP 118/62; PULSE 78; RESP 17; TEMP 37; O2SAT 98
[2023-08-24 12:38] VITALS: BP 118/62; PULSE 78; RESP 17; TEMP 37; O2SAT 98
[2023-08-24 12:47] VITALS: BP 118/62; PULSE 78; RESP 17; TEMP 37; O2SAT 98
== END 2023-08-24 12:47 | disposition home or self-care (01) | DRG 806 ==
LOC: OPOB 07:07 → OBGYN 07:11
PROVIDERS: Admitting Provider Obstetrics & Gynecology; PCP Family Medicine; Visit Provider Obstetrics & Gynecology
DX: O75.89 Other specified complications of labor and delivery (principal); O98.42 Viral hepatitis complicating childbirth; Z37.0 Single live birth; O70.1 Second degree perineal laceration during delivery; B19.20 Unspecified viral hepatitis C without hepatic coma; Z3A.39 39 weeks gestation of pregnancy; F15.11 Other stimulant abuse, in remission; Z67.41 Type O blood, Rh negative; O26.893 Other specified pregnancy related conditions, third trimester
CPT/HCPCS: 36415; 36430; 59025; 59409; 80306; 85025; 85027; 85460; 86850; 86870; 86900; 90384; J2590; J7120; J7121

== ENCOUNTER 2025-03-17 03:28 | Outpatient (CLI) | payer BC, MEDICAID, SELFPAY ==
[2025-03-17] VITALS (10 sets, daily range): BP systolic 100–127; BP diastolic 62–76; PULSE 62–82; BMI 26.1
--- NOTE | 2025-03-17 04:10 | PM.OBTRLD ---
OB L&D Triage Visit Information: Date of evaluation: 03/17/25 Reason for evaluation: other Comments/Additional reason(s) for visit: 35 y.o. EDC March 20, 2025 At 39 w 4 d care in [place] Records not available States EDC confirmed by 12 week sono And states all subsequent ultrasounds have been normal Was seen by her OB provider yesterday, had her ?membranes stripped? c/o bleeding at 0130 today no pain POBHx: x two Evaluation: monitor accelerations: Present 15x15 station: -3 Vital signs: Vital Signs - 24 hr 03/17/25 03:54 03/17/25 04:10 03/17/25 04:25 Pulse Rate 71 82 70 Blood Pressure 123/66 109/74 108/73 03/17/25 04:40 03/17/25 04:57 03/17/25 05:11 Pulse Rate 68 69 65 Blood Pressure 107/69 126/76 110/71 03/17/25 05:25 03/17/25 06:36 03/17/25 06:51 Pulse Rate 69 68 62 Blood Pressure 102/62 127/66 100/63 03/17/25 07:05 Pulse Rate 71 Blood Pressure 101/65 Comments: General comfortable, awake, alert VS normal Abd: soft, nontender Vulva: normal Vagina: no blood Cx: 1 / high External monitor: rare UCs heart tracing good variability, + accelerations Final Diagnosis Final Diagnosis 1. : Plan: 39 w 4 d Normal clinical exam Fetus reassuring Plan discharge to home Obtain records Patient requests induction of labor Plan schedule IOL once records become available Labor precautions Status: Acute Code(s): Z34.90 - Encounter for supervision of normal , unspecified, unspecified trimester Coding Level of Care Code Acute Code for Chg Fwd Diagnoses Z34.90
== END 2025-03-17 07:06 | disposition home or self-care (01) ==
LOC: OPOB 03:29 → OBGYN 03:30
PROVIDERS: PCP Family Medicine; Visit Provider Obstetrics & Gynecology
DX: O26.859 Spotting complicating pregnancy, unspecified trimester (principal); Z3A.00 Weeks of gestation of pregnancy not specified; R10.9 Unspecified abdominal pain
CPT/HCPCS: 59025; 99211

== ENCOUNTER 2025-03-21 15:49 | Inpatient (IN) | payer BC, MEDICAID, SELFPAY ==
[2025-03-21] VITALS (91 sets, daily range): BP systolic 96–141; BP diastolic 52–81; PULSE 67–101; RESP 16; TEMP 36.8–36.9; O2SAT 97–100; BMI 27.3
[2025-03-21 16:17] LABS: Hematocrit 34.6 % (36-47); Hemoglobin 12.00 g/dL (11.27-16.99); Mean Corpuscular HGB Conc 34.7 g/dL (30-55); Mean Corpuscular Hemoglobin 33.5 pg (27-33); Mean Corpuscular Volume 96.6 fl (85-98); Nucleated Red Blood Cells % 0 %; Platelet Count 239 10^3/cmm (157-399); Red Blood Count 3.58 10^6/uL (3.85-5.65); White Blood Count 14.39 10^3/uL (3.29-11.43)
[2025-03-21 17:01] LABS: PCP Screen Urine Negative (Negative)
[2025-03-21] MEDS: ROPivacaine syringe 100 MG/50 ML SYRINGE 10 MG EPIDURAL (18:31)
--- NOTE | 2025-03-21 18:40 | P.ANESASSM_ITS ---
Pre-Anesthetic Assessment Height/Weight: Height 1.63 m Weight 72.121 kg Temp Pulse Resp BP Pulse Ox O2 Del Method 98.4 F 87 16 130/81 98 Room Air 03/21/25 15:45 03/21/25 18:36 03/21/25 15:45 03/21/25 18:36 03/21/25 18:34 03/21/25 16:23 Preop Diagnosis: intrauterine labor epidural Familial anesthetic complications: none Was Beta Charanjit taken within 24 hours: N/A Was Clonidine taken within 24 hours: N/A Last intake: eating ice chips currently Social No alcohol and No tobacco Exam alert, oriented x 3 and clear to auscultation bilaterally Airway Mallampati: Class II Dentition: full History/ROS No significant history except as noted Pulmonary None reported CV/HEM None reported None reported Hepatic None reported GI None reported Metabolic None reported Musc/skel None reported Neuropsych None reported Anesthetic Plan ASA status: 2 Anesthesia: Anesthesia Evaluation and MAC Risk of > 500 ml blood loss (7ml/kg in children): Yes, adequate IV access and fluids planned Medications/Allergies Home Medications ?Medication ?Instructions ?Recorded ?Confirmed ?Last Taken ?Type prenat.vits,bart,xyi-occq-bqglf 1 tab PO DAILY 09/29/21 03/17/25 08/21/23 History Allergies Allergy/AdvReac Type Severity Reaction Status Date / Time No Known Allergies Allergy Verified 08/21/23 15:16 Current Medications Generic Name Dose Route Start Last Admin Trade Name Freq PRN Reason Stop Dose Admin Lactated Ringer's 1,000 mls @ 999 mls/hr 03/21/25 16:34 03/21/25 18:29 Lactated Ringers IV 999 mls/hr .Q1H1M PRN Administration See label comments Ropivacaine 100 mg in 50 mls @ 10 mls/hr 03/21/25 16:45 03/21/25 18:31 Naropin Syringe EPIDURAL 10 mls/hr .Q5H LUIS FERNANDO Administration PFSH Anesthesia Medical History (Updated 03/18/25 @ 01:03 by Walt Turner MD) Second degree perineal laceration Vaginal delivery Encounter for induction of labor Rh negative status during Supervision of other normal History of methamphetamine abuse History of heroin abuse Hepatitis C Surgical History No history of previous surgery History of wisdom tooth extraction Family History Family/Other Diabetes maternal uncles x2 Hyperlipidemia maternal uncles x2 Hypertension maternal uncles x2 maternal aunt x1 Stroke maternal uncle Heart disease maternal uncle Grandmother Diabetes maternal Denies family history of Colon cancer Ovarian cancer Clotting disorder Breast cancer Anesthesia complication Bleeding disorder Uterine cancer Thyroid disease Social History Substance/Drug Use: former Date of last use: clean 6 years from meth and heroin Female Reproductive History : 3 Para: 1 Data Anesthesia 03/21/25 16:00 Short CBC 03/21/25 Range/Units 16:00 WBC 14.39 H (3.29-11.43) 10^3/uL Hgb 12.00 (11.27-16.99) g/dL Hct 34.6 L (36-47) % MCV 96.6 (85-98) fl Plt Count 239 (157-399) 10^3/cmm Neut % (Auto) 86.6 % Neut # (Auto) 12.46 H (1.8-7.7) 10^3/uL Blood Bank 03/21/25 03/21/25 16:00 16:30 Blood Type Cancelled O Negative Rho(D) Type Cancelled Rh negative Antibody Screen Cancelled Negative Anesthesia Procedures Epidural Time Out Performed: Yes Consents Signed: Procedure Consent Consent: requested by attending/covering physician, from patient, risks and benefits reviewed and patient agrees to proceed Lumbar Level: L4-L5 Epidural position: sitting Epidural procedure: sterile prep of area, 1% lidocaine to numb the area, 18 g needle, negative for paresthesia passed, neg for paresthesia, test dose given, 1.5% xylocaine 1:200k epi, 0.2% Ropivacaine bolus ml (5), placed PCEA, no systemic response, sterile dressing applied, L.U.D. no apparent complications and 0.2% Ropiavacaine @ mls/hr (10) Additional Comments: 1st attempt +test dose, catheter immediately removed, VS stable and pt tolerating well. 2nd attempt SANDEE 5cm, catheter easily threaded to 5cm in the space, VS monitored throughout and remained stable. pt educated on FIELD PROPERTY LOSS SPECIALIST and reporting adequate pain relief with epidural.
--- NOTE | 2025-03-21 19:17 | PM.OBGYHP ---
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 Denies leaking of fluid. Reports normal movements throughout the day. care care at a different facility was seen on [phone] and triage due to contractions but sent home. Obstetric history notable for 2 prior spontaneous vaginal deliveries at term without complications. History of hep C tobacco and drug use. Present Details : 3 Para: 2 Labs Rubella: Immune RPR: Negative GBS: Negative Medications/Allergies Home Medications ?Medication ?Instructions ?Recorded ?Confirmed ?Last Taken ?Type prenat.vits,bart,sid-ylsd-bchfx 1 tab PO DAILY 09/29/21 03/17/25 08/21/23 History Allergies Allergy/AdvReac Type Severity Reaction Status Date / Time No Known Allergies Allergy Verified 08/21/23 15:16 PFSH CREDIT PRODUCTS OFFICER PFSH: Medical History (Updated 03/21/25 @ 19:42 by Esteban Mcclure MD) Second degree perineal laceration Vaginal delivery Encounter for induction of labor Rh negative status during Supervision of other normal History of methamphetamine abuse History of heroin abuse Hepatitis C Surgical History No history of previous surgery History of wisdom tooth extraction Family History Family/Other Diabetes maternal uncles x2 Hyperlipidemia maternal uncles x2 Hypertension maternal uncles x2 maternal aunt x1 Stroke maternal uncle Heart disease maternal uncle Grandmother Diabetes maternal Denies family history of Colon cancer Ovarian cancer Clotting disorder Breast cancer Anesthesia complication Bleeding disorder Uterine cancer Thyroid disease Social History Substance/Drug Use: former Date of last use: clean 6 years from meth and heroin Personal Safety: Do you feel safe at home: Yes History History History 2 Term 1 0 Miscarriages/Ectopic 0 Living Children 1 Vitals/I&O/Wt Last Vital Signs Temp 98.2 F 03/21/25 18:44 Pulse 79 03/21/25 19:14 Resp 16 03/21/25 18:44 BP 104/64 03/21/25 19:14 Pulse Ox 98 03/21/25 19:09 O2 Del Method Room Air 03/21/25 16:23 03/21/25 03/21/25 03/21/25 06:59 14:59 22:59 Intake Total 1000 / 1000 Balance 1000 / 1000 Weight last 48 hrs Weight 159 lb Physical Exam Narrative: Early labor with category 1 tracing, normal variability without decelerations. Pelvic examination, cervix 4 cm dilated 80% effaced, -1 station with intact membranes. Data 03/21/25 16:00 Results Labs OB ([facility]): Obstetrics US 08/18/23 Blood Type O Negative Today Antibody Screen Negative Today Hct, (36-47) 34.6 % L Today Hgb, (11.27-16.99) 12.00 g/dL Today Rho(D) Type Rh negative Today Plt Count, (157-399) 239 10^3/cmm Today Urine Opiates Screen, (Negative) Negative ng/mL Today Ur Barbiturates Screen, (Negative) Negative ng/mL Today Ur Phencyclidine Scrn, (Negative) Negative ng/mL Today Ur Amphetamines Screen, (Negative) Negative ng/mL Today U Benzodiazepines Scrn, (Negative) Negative ng/mL Today Urine Cocaine Screen, (Negative) Negative ng/mL Today U Marijuana (THC) Screen, (Negative) Negative ng/mL Today A&P Assessment and plan 1. Pain during labor: 2. 40 weeks gestation of : 3. Hepatitis C: 4. History of illicit drug use: 5. Tobacco use: 6. Uterine contractions during : Plan: Term with contractions. Patient at 40 weeks 1 day with regular uterine contractions. She reports bloody show and denies leaking of fluid. movements normal. monitoring category 1 with moderate to marked variability and no decelerations. Surrogate's examinations 4 cm 80% -1 station membranes intact history includes Rh- blood type with RhoGAM provided at around 28 weeks. Patient will be admitted to labor and delivery in anticipation of normal spontaneous vaginal delivery. Notify anesthesia for epidural if requested by patient. Will artificially rupture membranes after epidural with consent. The patient has been informed about her plan of care and management without any language barrier and and agreed with the plan of care. The patient and the mother and the boyfriend has been aware about her recovery condition and further plan of care, agreed upon. See admission orders PDMP PDMP Reviewed: Not Reviewed Attestations Medical Necessity Statement*: Admission needed for active labor and vaginal delivery at term expected. Coding Level of Care Code Acute Code for Chg Fwd Diagnoses Pain during labor O99.892; R52 40 weeks gestation of Z3A.40 Hepatitis C B19.20 History of illicit drug use F19.91 Tobacco use Z72.0 Uterine contractions during O47.9
--- NOTE | 2025-03-21 19:34 | PM.ACPR ---
Procedure/Consent Consent: Consent for Procedure: Consent obtained from patient, Risks & Benefits reviewed and Agrees to proceed with procedure Procedure Narrative: Verbal consent obtained for the procedure. Patient has already received epidural and is comfortable in bed. presentation was confirmed to be vertex with a pelvic examination showing 4 cm 80% effacement with intact membranes. The amniotic hook was advanced with left hand while right hand was placed in the vagina to guide the tip with 2 fingers. Care was taken to protect maternal tissues while placing the tip of the device in the index finger of the examining hand. The amnio hook tip was pushed against the sac and then pulled through the membrane creating a hole in the sac. Examining hand remained in place and confirmed that there was no prolapse of the umbilical cord during the procedure. The hand was then removed from the vagina and the amniotic fluid was noted to be meconium free and without blood. heart tracing shows a heart rate within normal heart rate range, with no decelerations. Procedure was well-tolerated by mother.
[2025-03-21] MEDS: oxytocin 30 UNIT/500 ML BAG 999 UNIT IV (22:29)
--- NOTE | 2025-03-21 22:50 | PM.DELIVERY ---
Delivery Note: Date of delivery: March 21, 2025 Pre-delivery diagnoses: 35yo 40wk in labor RH Neg BG Hep C Tabacco use Hx of past Drug use Post-delivery diagnoses: Same + BG 8/9 Procedure: 2nd degree vag repair Delivering Physician: Ren MCKEON Estimated blood loss (mL): 225 Findings: BG 8/9 weigh 8'11 lbs Delivery: Patient is a 35year-old , admitted at +40 weeks gestation in labor. Cervix was 4cm dilated, 80% effaced, and head at -1 station upon admission. GBS negative. Patient received an epidural early in labor. Labor progressed well, with cervical dilation reaching 10 cm and the head descending to +2 station. The rest of the body followed without difficulty. The baby is a healthy female, weighing 8 lbs 11 oz, with scores of 8 at 1 minute and 9 at 5 minutes. The placenta was delivered spontaneously and intact after one minute of delayed cord clamping. Estimated blood loss was 225 mL. The patient tolerated the procedure well and is currently stable in the recovery room. One 2nd degree lacerations sutured with 3-0 vicryl with good hemostasis. Pelvic exam clots removed manually and minimal bleeding noted. Skin to skin. Post-Delivery Status: Mother and baby stable History History History 2 Term 1 0 Miscarriages/Ectopic 0 Living Children 1 A&P Assessment and plan 1. , delivered: 2. 40 weeks gestation of : 3. Rh negative status during in third trimester: 4. Second degree perineal laceration: 5. Tobacco use: 6. Chronic hepatitis C without hepatic coma: 7. History of illicit drug use: Plan: at 40+wks wo complications. Ambulate with assistance initially then as tolerated. Regular diet as tolerated. Ice packs to perineum for the first 24 hours if needed. Topical anesthetic spray as needed if needed. Assessment of fundus firmness and lochia per unit protocol. Encourage frequent voiding. Stool softener docusate sodium 100 mg p.o. prn if needed. Discontinue IV fluids if stable and tolerating oral intake. PDMP PDMP Reviewed: Not Reviewed Coding Level of Care Code Acute Code for Chg Fwd Diagnoses , delivered O80 40 weeks gestation of Z3A.40 Rh negative status during in third trimester O26.893; Z67.91 Trimester: third trimester Rh negative status during in third trimester O26.893; Z67.91 Trimester: third trimester Second degree perineal laceration O70.1 Tobacco use Z72.0 Chronic hepatitis C without hepatic coma B18.2 Viral hepatitis chronicity: chronic Hepatic coma status: without hepatic coma Chronic hepatitis C without hepatic coma B18.2 Viral hepatitis chronicity: chronic Hepatic coma status: without hepatic coma History of illicit drug use F19.91
[2025-03-22] VITALS (12 sets, daily range): BP systolic 101–136; BP diastolic 56–73; PULSE 67–95; RESP 16; TEMP 36.6–36.8; O2SAT 96–98
[2025-03-22] MEDS: PRENATAL VIT NO.130/IRON/FOLIC 1 EACH TABLET PO (09:10)
[2025-03-22] MEDS: benzocaine-menthol 78 gm Canister 1 SPRAY TOPICAL (09:14)
[2025-03-22 10:45] LABS: Hematocrit 31.4 % (36-47); Hemoglobin 10.60 g/dL (11.27-16.99); Mean Corpuscular HGB Conc 33.8 g/dL (30-55); Mean Corpuscular Hemoglobin 33.1 pg (27-33); Mean Corpuscular Volume 98.1 fl (85-98); Platelet Count 179 10^3/cmm (157-399); Red Blood Count 3.20 10^6/uL (3.85-5.65); White Blood Count 14.93 10^3/uL (3.29-11.43)
--- NOTE | 2025-03-22 18:04 | P.PN_ITS ---
MORNING CAREGIVER Subjective 2 Subjective: Interval history: Pt doing well. Pain is well controlled with meds. Afebrile. No chills. Scant/normal lochia. Up and walking. Eating regular diet. No N/V. Voiding spontaneously. Passing gas. No Complaints Labor: Station: +2 Amniotic Membrane Status: Ruptured Monitor Mode: Palpation Contraction Pattern: Regular Status: Category I Vitals/I&O/Wt Last Vital Signs Temp 98.0 F 03/22/25 16:35 Pulse 67 03/22/25 16:35 Resp 16 03/22/25 06:30 BP 130/67 03/22/25 16:35 Pulse Ox 98 03/22/25 16:35 O2 Del Method Room Air 03/22/25 15:46 03/22/25 03/22/25 03/22/25 06:59 14:59 22:59 Intake Total 1028.85 / 2545.00 Balance 1028.85 / 2545.00 Weight last 48 hrs Weight 159 lb Physical Exam 2 Const: COMMON NORMALS: no acute distress GENERAL APPEARANCE: cooperative Resp: COMMON NORMALS: normal respiratory effort Cardio: COMMON NORMALS: regular rate RATE: regular rate GI: COMMON NORMALS: Normal to inspection, nondistended, normoactive bowel sounds present : UTERUS PALPATION: No Uterus tender and Yes Other OB uterine findings (contracted) Extremity: COMMON NORMALS: full ROM and no calf tenderness Psych: COMMON NORMALS: mental status grossly normal, cooperative and activity/motor behavior normal MOOD & AFFECT: No depressed mood Urinary Catheter Management: Brink Latex: Cath Placed During This Visit: yes, but has since been removed by the nurse Reason for Continuing Indwelling Catheter: Other Urinary Catheter Date of Insertion: 03/21/25 Urinary Catheter Time of Insertion: 19:27 Date Urinary Catheter Removed: 03/21/25 Time Urinary Catheter Discontinued: 22:18 Data 03/22/25 10:33 A&P Assessment and plan 1. , delivered: 2. Second degree perineal laceration: 3. Chronic hepatitis C without hepatic coma: 4. Chronic hepatitis C without hepatic coma: 5. Tobacco use: 6. Rh negative status during in third trimester: Plan: ASSESSMENT: PPD#1 Pt doing well. Afebrile. No chills. VSS. Tolerating diet. Rh Neg,PP rhogam given Uncomplicated course. PLAN: Routine care. D/C tomorrow PDMP PDMP Reviewed: Not Reviewed Attestations 2 Medical Necessity Statement*: Patient recovering from delivery Coding Level of Care Code Acute Code for Chg Fwd Diagnoses , delivered O80 Second degree perineal laceration O70.1 Chronic hepatitis C without hepatic coma B18.2 Viral hepatitis chronicity: chronic Hepatic coma status: without hepatic coma Tobacco use Z72.0 Rh negative status during in third trimester O26.893; Z67.91 Trimester: third trimester
[2025-03-23 04:24] VITALS: BP 107/64; PULSE 72; RESP 16; TEMP 36.7; O2SAT 99
--- NOTE | 2025-03-23 07:02 | P.PN_ITS ---
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 Pain is well controlled with meds. Afebrile. No chills. Scant/normal lochia. Up and walking. Eating regular diet. No N/V. Voiding spontaneously. Passing gas. No Complaints,ready for DH today Medications: Medication Review Details: PNVs Vitals/I&O/Wt Last Vital Signs Temp 98.0 F 03/23/25 04:24 Pulse 72 03/23/25 04:24 Resp 16 03/23/25 04:24 BP 107/64 03/23/25 04:24 Pulse Ox 99 03/23/25 04:24 O2 Del Method Room Air 03/23/25 04:24 03/22/25 03/23/25 03/23/25 22:59 06:59 14:59 Intake Total Balance Weight last 48 hrs Weight 159 lb Physical Exam 2 Const: COMMON NORMALS: alert Resp: COMMON NORMALS: normal respiratory effort Cardio: COMMON NORMALS: regular rate and regular rhythm RATE: regular rate RHYTHM: regular rhythm GI: COMMON NORMALS: Normal to inspection, nondistended, normoactive bowel sounds present : OTHER: Normal uterine tone,lochia and VS. Afebrile No calf tenderness Extremity: COMMON NORMALS: no calf tenderness Neuro: COMMON NORMALS: no focal motor deficits and no sensory deficits noted SENSORIUM/ORIENTATION: Yes alert Psych: COMMON NORMALS: mental status grossly normal MOOD & AFFECT: No depressed mood Urinary Catheter Management: Brink Latex: Cath Placed During This Visit: yes, but has since been removed by the nurse Reason for Continuing Indwelling Catheter: Other Urinary Catheter Date of Insertion: 03/21/25 Urinary Catheter Time of Insertion: 19:27 Date Urinary Catheter Removed: 03/21/25 Time Urinary Catheter Discontinued: 22:18 Data 03/22/25 10:33 A&P Assessment and plan 1. , delivered: 2. Rh negative status during in third trimester: 3. Second degree perineal laceration: 4. History of illicit drug use: 5. Chronic hepatitis C without hepatic coma: 6. Tobacco use: 7. 40 weeks gestation of : Plan: Assessment and plan 1. , delivered: 2. Second degree perineal laceration: 3. Chronic hepatitis C without hepatic coma: 4. Tobacco use: 5. Rh negative status during in third trimester: Plan: ASSESSMENT: PPD#2 VS normal Pt doing well. Afebrile. No chills. VSS. Tolerating diet. Rh Neg,PP rhogam given Uncomplicated course. PLAN: Routine care. D/C today with instructions PDMP PDMP Reviewed: Not Reviewed Attestations 2 Medical Necessity Statement*: Patient to be today Coding Level of Care Code Acute Code for Chg Fwd Diagnoses , delivered O80 Rh negative status during in third trimester O26.893; Z67.91 Trimester: third trimester Second degree perineal laceration O70.1 History of illicit drug use F19.91 Chronic hepatitis C without hepatic coma B18.2 Hepatic coma status: without hepatic coma Viral hepatitis chronicity: chronic Tobacco use Z72.0 40 weeks gestation of Z3A.40
--- NOTE | 2025-03-23 07:52 | PM.OBGYDC ---
Discharge Providers [employer] Date of Admission: 03/21/25 15:49 Date of Discharge: 03/23/25 Attending Provider at Admission: Esteban Mcclure MD Attending Provider at Discharge: Esteban Mcclure MD Primary Care Provider: Elle Coleman MD Diagnoses at Discharge Discharge Diagnosis 1. , delivered: 2. Rh negative status during in third trimester: 3. Second degree perineal laceration: 4. History of illicit drug use: 5. Chronic hepatitis C without hepatic coma: 6. Tobacco use: 7. 40 weeks gestation of : Reason for Visit Reason for Visit: Ctx Hospital Course Hospital Course Vaginal delivery wo complications ,full recovery. today Information Peripartum Data: Delivery Method: Vaginal Laceration description: Vaginal - 2nd Degree complications: none Physical Exam Resp: COMMON NORMALS: normal respiratory effort : UTERUS PALPATION: No Uterus tender Urinary Catheter Management: Brink Latex: Cath Placed During This Visit: yes, but has since been removed by the nurse Reason for Continuing Indwelling Catheter: Other Urinary Catheter Date of Insertion: 03/21/25 Urinary Catheter Time of Insertion: 19:27 Date Urinary Catheter Removed: 03/21/25 Time Urinary Catheter Discontinued: 22:18 History History History 2 Term 1 0 Miscarriages/Ectopic 0 Living Children 1 Discharge Data Studies Completed and Pending Laboratory Results WBC 14.93 10^3/uL (3.29-11.43) H 03/22/25 10:33 RBC 3.20 10^6/uL (3.85-5.65) L 03/22/25 10:33 Hgb 10.60 g/dL (11.27-16.99) L 03/22/25 10:33 Hct 31.4 % (36-47) L 03/22/25 10:33 MCV 98.1 fl (85-98) H 03/22/25 10:33 MCH 33.1 pg (27-33) H 03/22/25 10:33 MCHC 33.8 g/dL (30-55) 03/22/25 10:33 RDW 13.5 % (12.1-15.1) 03/22/25 10:33 Plt Count 179 10^3/cmm (157-399) 03/22/25 10:33 MPV 10.6 fL (7.4-10.4) H 03/22/25 10:33 Neut % (Auto) 86.6 % 03/21/25 16:00 Lymph % (Auto) 7.7 % 03/21/25 16:00 [place] % (Auto) 4.9 % 03/21/25 16:00 Eos % (Auto) 0.1 % 03/21/25 16:00 Baso % (Auto) 0.1 % 03/21/25 16:00 Neut # (Auto) 12.46 10^3/uL (1.8-7.7) H 03/21/25 16:00 Lymph # (Auto) 1.1 10^3/uL (0.8-4.8) 03/21/25 16:00 [place] # (Auto) 0.7 10^3/uL (0.2-0.9) 03/21/25 16:00 Eos # (Auto) 0.0 10^3/uL (0.0-0.8) 03/21/25 16:00 Baso # (Auto) 0.0 10^3/uL (0.0-0.1) 03/21/25 16:00 Nucleated RBC % (auto) 0 % 03/21/25 16:00 Nucleated RBCs # 0.0 /100WBC 03/21/25 16:00 Urine Opiates Screen Negative ng/mL (Negative) 03/21/25 16:25 Ur Barbiturates Screen Negative ng/mL (Negative) 03/21/25 16:25 Ur Phencyclidine Scrn Negative ng/mL (Negative) 03/21/25 16:25 Ur Amphetamines Screen Negative ng/mL (Negative) 03/21/25 16:25 U Benzodiazepines Scrn Negative ng/mL (Negative) 03/21/25 16:25 Urine Cocaine Screen Negative ng/mL (Negative) 03/21/25 16:25 U Marijuana (THC) Screen Negative ng/mL (Negative) 03/21/25 16:25 Blood Type O Negative 03/21/25 16:30 Rho(D) Type Rh negative 03/21/25 16:30 Antibody Screen Negative 03/21/25 16:30 Screen Negative (Negative) 03/22/25 10:33 Vitals Last Vital Signs Temp 98.0 F 03/23/25 04:24 Pulse 72 03/23/25 04:24 Resp 16 03/23/25 04:24 BP 107/64 03/23/25 04:24 Pulse Ox 99 03/23/25 04:24 O2 Del Method Room Air 03/23/25 04:24 Results Labs OB ([facility]): Obstetrics US 08/18/23 Blood Type O Negative 03/21/25 Antibody Screen Negative 03/21/25 Hct, (36-47) 31.4 % L 03/22/25 Hgb, (11.27-16.99) 10.60 g/dL L 03/22/25 Rho(D) Type Rh negative 03/21/25 Plt Count, (157-399) 179 10^3/cmm 03/22/25 Urine Opiates Screen, (Negative) Negative ng/mL 03/21/25 Ur Barbiturates Screen, (Negative) Negative ng/mL 03/21/25 Ur Phencyclidine Scrn, (Negative) Negative ng/mL 03/21/25 Ur Amphetamines Screen, (Negative) Negative ng/mL 03/21/25 U Benzodiazepines Scrn, (Negative) Negative ng/mL 03/21/25 Urine Cocaine Screen, (Negative) Negative ng/mL 03/21/25 U Marijuana (THC) Screen, (Negative) Negative ng/mL 03/21/25 Discharge Plan Discharge Patient Disposition: Home Prescriptions: No Action prenat.vits,bart,[id number] Tablet 1 tab PO DAILY Discharge Order = DC NOW: Discharge Order (Routine); Ordered 03/23/25 Ordered By: Esteban Mcclure Referrals: Vandana Steel APN, YADIRA [Nurse Practitioner, [employer]] Discharge Diet: Regular Discharge Activity: Increase activity as tolerated Patient Instructions: Depression (DC), Opioid Safety (DC), Preeclampsia and Eclampsia After Delivery (GEN), Hemorrhage (DC), OB Discharge Report, OB Food/Drug Interaction Guide, OB Care at Home, Opioid Safety, OB Vaginal Deliveries, Patient Portal & Billy Instructions, Abnormal Bleeding Discharge Attestations [employer] Time Spent in Discharge Care*: less than 30 min Coding Level of Care Code Acute Code for Chg Fwd Diagnoses , delivered O80 Rh negative status during in third trimester O26.893; Z67.91 Trimester: third trimester Second degree perineal laceration O70.1 History of illicit drug use Z87.898 Chronic hepatitis C without hepatic coma B18.2 Hepatic coma status: without hepatic coma Viral hepatitis chronicity: chronic Tobacco use Z72.0 40 weeks gestation of Z3A.40
--- NOTE | 2025-03-23 08:00 | ANE.PACU2 ---
Inpatient post-anesthesia follow up: Airway intact: Yes Vital signs: Temperature 98.0 F Pulse Rate 72 Respiratory Rate 16 Blood Pressure 112/74 Pulse Oximetry 97 Oxygen Delivery Me thod Room Air Oxygen Flow Rate Fraction of Inspir ed Oxygen Hydration adequate: Yes Nausea and vomiting: No Pain level: 1 Mental status: Baseline Epidural Start/End: Epidural Start Date: 03/21/25 Epidural Start Time: 18:30 Epidural End Date: 03/22/25 Epidural End Time: 00:00
[2025-03-23 10:53] VITALS: BP 112/74; PULSE 72; RESP 16; TEMP 36.7; O2SAT 97
== END 2025-03-23 10:53 | disposition home or self-care (01) | DRG 806 ==
LOC: OPOB 15:49 → OBGYN 15:49
PROVIDERS: Admitting Provider Obstetrics & Gynecology; PCP Family Medicine; Visit Provider Obstetrics & Gynecology
DX: O48.0 Post-term pregnancy (principal); O98.42 Viral hepatitis complicating childbirth; Z37.0 Single live birth; Z3A.40 40 weeks gestation of pregnancy; B18.2 Chronic viral hepatitis C; O70.1 Second degree perineal laceration during delivery
CPT/HCPCS: 12345; 36415; 36430; 51702; 59025; 59409; 80306; 85025; 85027; 85460; 86850; 86900; 90384; 99211; J2590; J2795; J7120; J9999